=== PATIENT | male | born 1985 | race Caucasian/White ===

== ENCOUNTER 2020-12-12 15:35 | Outpatient (CLI) | payer BC, SELFPAY | END 2020-12-12 15:36 | disposition home or self-care (01) | LOC: ANHCOVIDVC 15:35 | PROVIDERS: PCP Family Medicine | DX: Z23 Encounter for immunization (principal) | CPT/HCPCS: 0001A; 91300 ==

== ENCOUNTER 2021-01-02 15:27 | Outpatient (CLI) | payer BC, SELFPAY | END 2021-01-02 15:28 | disposition home or self-care (01) | LOC: ANHCOVIDVC 15:27 | PROVIDERS: PCP Family Medicine | DX: Z23 Encounter for immunization (principal) | CPT/HCPCS: 0002A; 91300 ==

== ENCOUNTER 2022-02-27 11:13 | Emergency (ER) | payer BC, SELFPAY ==
[2022-02-27] VITALS (10 sets, daily range): BP systolic 115–145; BP diastolic 72–89; PULSE 39–73; RESP 13–28; TEMP 35.7; O2SAT 68–100
--- NOTE | ~2022-02-27 | XR_ITS ---
EXAMINATION: XR chest ET placement, XR abdomen NG/feed tube insert DATE: 02/27/2022 12:21 INDICATION: Intubation and nasogastric tube placement. TECHNIQUE: 1. Frontal view of the chest was obtained. 2. AP view of the abdomen was obtained. COMPARISON: None FINDINGS: Chest: Endotracheal tube tip 8.0 cm above the briana. The lungs are clear with no focal airspace opacities, pulmonary edema, pleural effusion or pneumothorax. The cardiomediastinal silhouette is normal. Mild S-shaped thoracolumbar curvature with mild upper lumbar levocurvature and thoracolumbar dextrocurvatu re. Abdomen: Nasogastric tube tip in proximal side port in the body of the stomach. No dilated loops of gas-filled bowel in the abdomen. IMPRESSION: 1. Endotracheal tube tip 8 cm above the briana. Consider advancement by 6 cm. 2. Nasogastric tube in the stomach. 3. No acute cardiopulmonary disease. Reviewed, dictated and finalized at location B. IMPRESSION: 1. Endotracheal tube tip 8 cm above the briana. Consider advancement by 6 cm. 2. Nasogastric tube in the stomach. 3. No acute cardiopulmonary disease.
--- NOTE | ~2022-02-27 | CT_ITS ---
EXAMINATION: CT brain wo con DATE: 02/27/2022 11:34 INDICATION: Syncope. TECHNIQUE: Computed tomography (CT) of the head was performed without intravenous contrast. The mA wa s adjusted according to patient size. Iterative reconstruction technique was employed. The dose-lengt h product was 605.33 mGy-cm. COMPARISON: None FINDINGS: There is a fracture of squamous portion of right temporal bone with 1 mm offset. The fractu re involves the anterior right mastoid air cells. The fracture continues into the right parietal bone . There is a right temporal parietal epidural hematoma with maximum thickness of 13 mm. There are foc i of gas in the hematoma. There is a small volume of subarachnoid hematoma in adjacent right middle l obe sulci. There is no acute ischemic infarct or abnormal mass lesion. The ventricles are normal in s ize. There is mild mucosal thickening in the paranasal sinuses. The mastoid air cells are normal. The orbits are normal. IMPRESSION: 1. Acute right temporal parietal epidural hematoma with maximum thickness of 13 mm. Small volume of a djacent acute subarachnoid hematoma. I discussed this result with Dr. August. 2. Fracture of the right temporal bone and right parietal bone. Reviewed, dictated and finalized at location A. IMPRESSION: 1. Acute right temporal parietal epidural hematoma with maximum thickness of 13 mm. Small volume of adjacent acute subarachnoid hematoma. I discussed this res ult with Dr. August. 2. Fracture of the right temporal bone and right parietal bone.
--- NOTE | ~2022-02-27 | CT_ITS ---
EXAMINATION: CT cervical spine wo con DATE: 02/27/2022 11:34 INDICATION: Syncope. Fall. Altered mental status. TECHNIQUE: Computed tomography (CT) of the cervical spine was performed without intravenous contrast. The dose-length product was 347 mGy-cm. Automated exposure control and iterative reconstruction tech nique were employed. COMPARISON: No prior studies for comparison. FINDINGS: Vertebral body heights are maintained. There is straightening of cervical lordosis. There i s mild disc narrowing at C5-6. There is mild uncinate degenerative change at multiple levels. Lung ap ices are normal. No paraspinal soft tissue abnormality. There is trace pneumocephalus, likely from ov erlying skull fracture.. Craniovertebral junction is normal. IMPRESSION: 1. No acute abnormality of the cervical spine. 2: Trace pneumocephalus, likely from overlying skull fracture. Reviewed, dictated and finalized at location A.
--- NOTE | 2022-02-27 11:21 | ECG_ITS ---
Measurements Intervals [place] Rate: 46 P: 74 ID: 140 QRS: 24 QRSD: 117 T: 45 QT: 510 QTc: 449 Interpretive Statements SINUS BRADYCARDIA ATRIAL PREMATURE COMPLEX INCOMPLETE RIGHT BUNDLE BRANCH BLOCK BORDERLINE R WAVE PROGRESSION, ANTERIOR LEADS ST-T WAVE ABNORMALITY IN ANTERIOR LEADS- CONSIDER ISCHEMIA BASELINE ARTIFACT- I, II, III, AVR, AVL, AVF, V5-V6 ABNORMAL ECG Electronically Signed On 02-27-2022 12:19:46 CDT by Juanjo Brown D.O.
--- NOTE | 2022-02-27 11:38 | PC.NURSE ---
return from ct. pts heartrate is 37. pulse ox 94% room air. r 14. bp 115/77
--- NOTE | 2022-02-27 11:44 | ED.AMS ---
HPI - Altered Mental Status General Chief Complaint: Altered Mental Status Stated Complaint: syncopal Time Seen by Provider: 02/27/22 11:37 Source: EMS Mode of arrival: EMS Limitations: altered mental status History of Present Illness HPI narrative: 36-year-old otherwise healthy was brought in from urology office with a syncopal episode. As per the who is at the bedside he was consulting urologist for possible hydrocele on his way out of the office had a syncopal episode fell on the ground was found unresponsive by the security business analyst later called 911 patient upon arrival to the ER been uncooperative and combative. 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 He is not on any anticoagulant MD complaint: altered mental status Timing confirmed by: other (EMS) Severity: severe Related Data Home Medications Medication Instructions Recorded Confirmed No Home Medications 11/28/21 11/28/21 Allergies Allergy/AdvReac Type Severity Reaction Status Date / Time No Known Allergies Allergy Unverified 11/28/21 08:15 Review of Systems Review of Systems: ROS unobtainable: Yes unobtainable due to medical condition [facility] Surgical History Surgical History History of orchiectomy right Family History Family History Father Family history of coronary artery disease Family history of lymphoma Social History Social History Smoking status: Never smoker Second hand tobacco smoke exposure: No Alcohol intake: current Drinks per week: 1 Alcohol use details: socially Substance use: never Substance use type: does not use Gender identity (if verbalized by the patient): Male Sexual Orientation (if Verbalized by the Patient): Straight or Heterosexual Exam Narrative: GENERAL: Combative,thin HEAD: Normocephalic, has a hematoma on the right parietal side EYES: PERRLA and EOMI. NECK: Supple. CHEST: Clear to auscultation. No respiratory distress. HEART: Bradycardia. No murmur heard. Normal peripheral pulses. ABDOMEN: Soft, nontender, nondistended, normal active bowel sounds. EXTREMITIES: Normal range of motion. No edema. SKIN: Warm, dry, no rash. NEURO: No focal deficits. confused PSYCH: Normal mood and affect. Course Course Emergency Course: Patient is being combative and quite agitated unable to follow the commands I did give IV Versed 4 mg for sedation so I could not get CT scan of the head he was able to protect airway. CT showed epidural bleed with skull fracture. Soon after he came back to the ER room 8 he started having nausea and vomiting opted to intubate for airway protection. Discussed with Dr. Danielle at [facility] accepted the pt in transfer. Vital Signs Vital signs: Vital Signs Pulse Rate 41 L 02/27/22 11:37 Respiratory Rate 17 02/27/22 11:37 Pulse Oximetry 99 02/27/22 11:37 Temperature 35.7 C L 02/27/22 11:39 Pulse Rate 46 L 02/27/22 12:40 Respiratory Rate 16 02/27/22 12:40 Blood Pressure 126/85 02/27/22 12:40 Pulse Oximetry 97 02/27/22 12:40 Oxygen Delivery Mechanical Ventilation 02/27/22 12:15 Fraction of Inspired Oxygen 100 02/27/22 12:15 Procedures Intubation Intubation #1: Intubation Date: 02/27/22 Intubation Time: 12:00 sedative: Etomidate Mg Given: 10 paralytic: Succinylcholine Mg Given: 100 Tube Size (cm): 7.5 Method of Intubation: orotracheal Number of Attempts: 1 Tube Secured Depth (cm): 24 Tube Placement Confirmation: visualized tube passing through cords, equal breath sounds bilaterally and confirmation by capnometry Patient Tolerated Procedure: well Intubation Complications: none MDM - Altered Mental Status Differential Diagnosis Differential diagnosis: Likely altered men
--- NOTE | 2022-02-27 11:49 | PC.NURSE ---
pt shot up out of bed and vomited. edp aware. room prepped for intubation. zofran given ivp
[2022-02-27 11:50] LABS: Basophils Absolute Auto 0.1 K/mm3 (0.0-0.1); Basophils Percent Auto 1.2 % (0.2-1.2); Eosinophils Absolute Auto 0.2 K/mm3 (0-0.3); Eosinophils Percent Auto 2.5 % (0-4.4); Hematocrit 43.2 % (42.0-52.0); Hemoglobin 14.7 g/dL (14.0-18.0); Immature Granulocyte Absolute 0.02 K/mm3 (0.00-0.031); Immature Granulocyte Percent A 0.3 % (0-0.5); Lymphocytes Absolute Auto 2.74 K/mm3 (0.9-3.2); Lymphocytes Percent Auto 42.7 % (18.3-44.2); Mean Corpuscular Hemoglobin 30.5 pg (26-34); Mean Corpuscular Volume 89.6 fl (80-100); Monocytes Absolute Auto 0.5 K/mm3 (0.1-0.6); Monocytes Percent Auto 7.8 % (2.6-8.5); Neutrophils Absolute Auto 2.9 K/mm3 (1.3-6.7); Neutrophils Percent Auto 45.5 % (45.5-73.1); Platelet Count Result 231 k/mm3 (150-375); Red Blood Count 4.82 M/mm3 (4.6-6.20); Red Cell Distribution Width 11.9 % (11.5-14.5); White Blood Count 6.4 K/mm3 (4.5-10.0)
--- NOTE | 2022-02-27 11:57 | PC.NURSE ---
dr mcnair at bedside for intubation. etomidate 10 mg and succ 100 mg given ivp. 7.5 et tube placed 24 at lip. equal chest rise. breath sounds noted all lung prieto.
[2022-02-27 12:01] LABS: Alanine Aminotransferase 18 U/L (6-50); Albumin Level 4.5 g/dL (3.5-5.1); Alkaline Phosphatase 72 U/L (38-126); Anion Gap 9 mmol/L (8-16); Aspartate Amino Transferase 41 U/L (17-59); Bilirubin,Total 0.8 mg/dL (0.2-1.3); Blood Urea Nitrogen 15 mg/dL (9-20); Calcium 8.8 mg/dL (8.4-10.2); Carbon Dioxide 24 mmol/L (22-30); Chloride 101 mmol/L (98-107); Estimated CRCL calculation 83 ml/min; Estimated Glomerular Filt Rate > 60; Glucose 164 mg/dL (65-110); Potassium 3.5 mmol/L (3.4-5.0); Sodium 134 mmol/L (137-145)
[2022-02-27 12:02] LABS: INR 1.1; Prothrombin Time 13.7 Seconds (11.1-14.7)
[2022-02-27 12:03] LABS: Partial Thromboplastin Time 24.2 SECONDS (22.3-36.8)
--- NOTE | 2022-02-27 12:09 | PC.NURSE ---
pt restless, attempting to sit up. diprivan 75 mg given ivp. bp 145/89 p 62. [facility] here for transport
--- NOTE | 2022-02-27 12:19 | PC.NURSE ---
pt received additional dose of propofal 50mg ivp x1. decision made to change sedation drug to Versed
--- NOTE | 2022-02-27 12:25 | PC.NURSE ---
versed 4 mg ivp given for pts continued agitation. drip to be iniated prior to transport. bp 130/99 p 46 r 16 pulse ox 100% on vent
[2022-02-27 12:31] LABS: Appearance Urine Clear (Clear); Bilirubin Urine Negative (Negative); Blood Urine Negative (Negative); Color Urine Yellow (Yellow); Glucose Urine UA Negative (Negative); Ketones Urine Negative (Negative); Leukocyte Esterase Ur Negative LEU/UL (Negative); Nitrate Urine Negative (Negative); Protein Urine Negative (Negative); Specific Grav Ur 1.015 (1.001-1.035); Urobilinogen Urine 0.2 mg/dL (<2.0); pH Urine 8.5 (5.0-9.0)
--- NOTE | 2022-02-27 12:40 | PC.NURSE ---
versed 4 mg given for persistent restlessness. care transferred to [facility] for transport to [facility].
[2022-02-27 12:42] LABS: Add Urine Microscopic? NO
== END 2022-02-27 12:40 | disposition short-term general hospital (02) ==
PROVIDERS: Emergency Provider Family Medicine; PCP Family Medicine
DX: I62.1 Nontraumatic extradural hemorrhage (principal); S02.19XA Other fracture of base of skull, initial encounter for closed fracture; S02.0XXA Fracture of vault of skull, initial encounter for closed fracture; W18.39XA Other fall on same level, initial encounter; I49.1 Atrial premature depolarization; I45.10 Unspecified right bundle-branch block; R94.31 Abnormal electrocardiogram [ECG] [EKG]
CPT/HCPCS: 31500; 36415; 70450; 72125; 80053; 81003; 85025; 85610; 85730; 93005; 96374; 96375; 99291; J0461; J2250; J2405; J2704; J7030

== ENCOUNTER → 2022-08-20 15:07 | Outpatient (CLI) | payer BC, SELFPAY ==
--- NOTE | ~2022-08-20 | US_ITS ---
EXAMINATION: US scrotum doppler DATE: 08/20/2022 15:33 INDICATION: Left-sided hydrocele. TECHNIQUE: Grayscale and Doppler ultrasound images of the testes were obtained. COMPARISON: None. FINDINGS: The right testis is absent. The left testis measures 5.0 x 2.9 x 3.5 cm. There is a coarse calcification in the left testis. There is normal vascular flow to left testis. Left epididymis is no t identified. There is a large left hydrocele. IMPRESSION: 1. Large left hydrocele. 2. Absent right testis. Reviewed, dictated and finalized at location A. [employer] PROGRAMMING MANAGER
== END ==
PROVIDERS: PCP Urology; Visit Provider Urology
DX: N43.3 Hydrocele, unspecified (principal)
CPT/HCPCS: 76870; 93976

== ENCOUNTER 2022-09-17 01:31 | Day surgery (SDC) | payer BC, SELFPAY ==
[2022-09-10 15:23] VITALS: BMI 19.5
--- NOTE | 2022-09-10 15:28 | PC.NURSE ---
Report to the Outpatient Waiting Room, entrance under the green pavilion located off [facility], at time 11:30 on date 09/17/22. Planned Procedure Time: 1:30. Time changes happen often and if your time is changed the preop area will call you the afternoon before. - You and your visitor will be asked to self-screen and do not enter if you have any COVID symptoms. - Only one visitor is requested with a max of two and NO children visitors are allowed at this time. - The patient visitor may be requested to leave or wait in car when not with patient due to distancing restrictions. - A mask is optional within the hospital. Patients may have clear liquids (water, carbonated beverages, clear teas, apple juice) until 3 hours prior to surgery (10:30) with a maximum of 20 ounces. - No food from midnight until time of surgery Take the following medications with a SIP of water the morning of surgery: N/A Medications to discontinue per physician: N/A Date to take last dose: N/A Please no make-up, nail lao, hairspray, perfume, deodorant, or body powder the day of surgery. No jewelry (including any body piercings) or valuables the day of surgery, leave them at home. Please take a shower or bath the night before, or the morning of, surgery with an antibacterial soap. Wear comfortable, loose fitting clothing. - Jewelry must be removed prior to entering the operating room. Rings and piercings that are not removed may be cut off. - The hospital will not accept responsibility for valuables. - Please leave all valuables, including medications, at home the day of surgery. If you are going home after surgery, a licensed ups driver must drive you home. - NO public transportation without another adult if you receive anesthesia. - We recommend that an adult stay with you for 24 hours following discharge. - We also recommend that you do not drive, make important decision, drink alcoholic beverages, or take any drugs that were not prescribed by your health care provider for at least 24 hours after your discharge time. Follow any additional instructions given to you from your surgeon. If you or anyone in your household have experienced Covid symptoms in the past week, please notify your surgeon or the nurse liaison at the phone number below for possible testing. Telephone instructions given to PT - KANDI NEGRETE and asked if any additional questions and then verbalized understanding. Patient advised to call surgeon office or pre surgery nurse liaison [phone] if any additional questions.
--- NOTE | 2022-09-16 14:07 | WPDANESEPPF ---
Anes - Initial Pre Proc Eval Procedure: Operation Date: 09/17/22 13:30 Proposed Procedures p Scrotal Exploration - Carlos Boyle MD s Hydrocelectomy with Left Orchiopexy - Carlos Boyle MD Date/Time: 09/16/22 14:07 Surgeon: Carlos Boyle MD Pre Op Diagnosis: left hrydrocele Patient Data Age: 37 Gender: M Height: 1.8 m Weight: 63.5 kg Allergies Allergy/AdvReac Type Severity Reaction Status Date / Time No Known Allergies Allergy Unverified 09/17/22 11:33 Home Medications Medication Instructions Recorded Confirmed Type doxylamine succinate 25 mg tablet 12.5 mg PO HS PRN Insomnia 09/10/22 09/17/22 History (Unisom (doxylamine)) Patient hx anesthesia problems: none Family hx anesthesia problems: none Results Review: All pre-operative results and documents have been reviewed as part of the pre-operative evaluation. [facility] Past Medical History Medical History (Updated 09/16/22 @ 14:07 by Sai Alejandro MD) ICH (intracerebral hemorrhage) Syncope and collapse Surgical History Surgical History History of orchiectomy right Family History Family History Father Family history of coronary artery disease Family history of lymphoma Social History Social History Smoking status: Never smoker Second hand tobacco smoke exposure: No Alcohol intake: never Drinks per week: 1 Alcohol use details: socially Substance use: never Substance use type: does not use Living arrangements: with family Gender identity (if verbalized by the patient): Male Sexual Orientation (if Verbalized by the Patient): Straight or Heterosexual Spiritual care concerns: No Anes - Eval Final PreProcedure Day of Procedure 09/16/22 14:07 Patient weight: normal Heart: regular rate and rhythm Lungs: clear to auscultation and normal air movement Airway: Mallampati scale class II Neurological: alert and oriented Last oral intake: >/= 8 hours ASA classification: II Emergent: no Anesthetic plan: proceed Anesthesia type and monitoring: general LMA Results Review: All pre-operative results and documents have been reviewed as part of the pre-operative evaluation. Informed Consent: The patient's anesthetic plan and its attendant risks and benefits were discussed with the patient/family/POA. Questions were solicited and answers provided to the satisfaction of the patient/family/POA.
[2022-09-17] VITALS (7 sets, daily range): BP systolic 127–142; BP diastolic 75–92; PULSE 58–76; RESP 14–18; TEMP 36.2–36.9; O2SAT 100
[2022-09-17] MEDS: LACTATED RINGERS 1,000 ML 30 ML IV CONT ×2 (11:49→14:17)
--- NOTE | 2022-09-17 11:51 | WPDHPUPDATE1 ---
History and Physical Update Update Date/Time: 09/17/22 11:51 History and Physical has been reviewed, including an updated exam of the patient. There are NO changes in the patient's condition. Risks, benefits, and alternatives have been discussed and questions answered. Patient agrees to proceed with procedure. Proceed with scrotal exploration with left hydrocelectomy, left orchiopexy.
[2022-09-17] MEDS: ceFAZolin 2 GM/D5W 50 ML 2 GM/50 ML BAG IVPB (13:23)
--- NOTE | 2022-09-17 14:11 | W.PM.PROC2 ---
Procedure Note - Detailed Date of Procedure 09/17/22 Pre-op Diagnosis left hrydrocele Post-op Diagnosis Same Procedure Performed Scrotal exploration with left hydrocelectomy, left orchiopexy Surgeon Carlos Boyle MD Anesthesia General Description of Procedure Patient is taken to the operative suite correctly identified. Once anesthesia was obtained was placed in a supine position and prepped and draped usual sterile fashion. Transverse incision was made in the left hemiscrotum carried down to the tunica. The hydrocele sac was then brought out the operative field. We opened the hydrocele up in evacuated approximately 300 cc of straw-colored fluid. We excised the excess sac. His prior orchiopexy sutures were visualized and removed. Hemostasis was adequate at this time. Quarter-inch [place] drain was placed in a separate stab incision in the inferior aspect of the scrotum. We then we did an orchiopexy using Ethibond suture and fixated in 3 points. We then closed the tunica using 3-0 chromic in a running fashion. Skin was closed using 3-0 chromic in a running fashion. 0.25% Marcaine was used to anesthetize the skin. All lap count needle count sponge counts were correct. Patient tolerated procedure well without complications taken recovery stable condition. Please send copy op note to my office. He will remove his drain in 2-3 days time. Estimated Blood Loss 0 Drains Yes (Quarter-inch [place] drain) Pathology None sent Complications No immediate complications Condition Stable Disposition PACU
[2022-09-17] MEDS: oxyCODONE HCL (*CRX) 5 MG TAB IR PO (15:26)
== END 2022-09-17 15:54 | disposition home or self-care (01) ==
PROVIDERS: PCP Family Medicine; Visit Provider Urology
PROC: (CPT 55110; principal; 2022-09-17 13:30)
PROC: (CPT 55040; 2022-09-17 13:30)
DX: N43.3 Hydrocele, unspecified (principal)
CPT/HCPCS: 55040; 54640; 88302; A9270; J0690; J1100; J2250; J2405; J2704; J3010; J7120